=== PATIENT | female | born 1965 | race Caucasian/White ===

== ENCOUNTER 2016-12-02 19:53 | Emergency (ER) | payer BC, OTHER ==
[~2016-12-02] VITALS: Ht 167.6 cm; Wt 80.0 kg
[2016-12-02 19:56] VITALS: BP 152/75; PULSE 81; RESP 16; TEMP 98.4; O2SAT 99
[2016-12-02] MEDS ORDERED: traMADol HCL 50 MG TAB PO ONE (23:15)
--- NOTE | 2016-12-02 23:43 | PD ---
HPI Chief Complaint: Fall Time Seen by Provider: 23:01 Travel History International Travel<30 days: No Contact w/Intl Traveler<30days: No Traveled to known affect area: No History of Present Illness HPI 51-year-old female with history of diabetes here for evaluation of bilateral knee, bilateral hip, and lower back pain after a slip and fall that occurred at around 4:30 PM today. The patient reports that she was at an [employer] restaurant when she slipped and fell, landing onto her knees, causing her legs split apart. She has been able to ambulate since the fall, however has had persistent pain in her knees bilaterally, bilateral hips, and lower back. She denies head injury or LOC. She is not on any antiplatelets or anticoagulants. No paresthesias or motor deficits. Pain is moderate, constant, worse with movement and palpation. PFSH Past Medical History Cardiovascular Problems: Yes (HTN) Diabetes: Yes Patient Takes Glucophage: Yes (METFORMIN 12/02/16 0800) Diminished Hearing: No Hypertension: Yes Tetanus Vaccination: > 5 Years Influenza Vaccination: Yes ?: Not Tubal Ligation: Yes Social History Alcohol Use: Yes (RARE) Tobacco Use: No Substance Use: No Allergies-Medications (Allergen,Severity, Reaction): Coded Allergies: No Known Allergies (Unverified , 12/02/16) Reported Meds & Prescriptions Reported Meds & Active Scripts Active Tramadol (Tramadol HCl) 50 Mg Tab 50 Mg PO Q6H PRN Reported Invokana (Canagliflozin) 100 Mg Tab 100 Mg PO DAILY Take before 1st meal of day. Metformin (Metformin HCl) 500 Mg Tab 500 Mg PO BIDPC With meals Glipizide 10 Mg Tab 10 Mg PO BIDAC Take 30 minutes before a meal Review of Systems Except as stated in HPI: all other systems reviewed are Neg Physical Exam Narrative GENERAL: Well-developed, well-nourished, comfortable, no acute distress. SKIN: Warm and dry. Left anterior knee with small superficial abrasion. Right anterior/medial knee with area of ecchymosis and slight swelling. No other lacerations, abrasions, or ecchymosis. HEAD: Atraumatic. Normocephalic. EYES: Pupils equal and round. No scleral icterus. No injection or drainage. ENT: No nasal bleeding or discharge. Mucous membranes pink and moist. NECK: Trachea midline. No JVD. No midline cervix spine step-off or tenderness. CARDIOVASCULAR: Regular rate and rhythm. Distal pulses brisk and equal bilaterally. RESPIRATORY: No accessory muscle use. Clear to auscultation. Breath sounds equal bilaterally. GASTROINTESTINAL: Abdomen soft, non-tender, nondistended. MUSCULOSKELETAL: Skin exam as above. Right medial/anterior knee with slight ecchymosis and swelling. Normal range of motion in bilateral hips and knees. Mild right SI joint tenderness. No midline vertebral step-off or tenderness. The rest of her joints and extremities are without deformity, without tenderness , with normal range of motion. NEUROLOGICAL: Awake and alert. No obvious cranial nerve deficits. Motor grossly within normal limits. Normal speech. PSYCHIATRIC: Appropriate mood and affect; insight and judgment normal. Data Data Last Documented VS Vital Signs Date Time Temp Pulse Resp B/P Pulse Ox O2 Delivery O2 Flow Rate FiO2 12/02/16 19:56 98.4 81 16 152/75 99 Room Air Orders Pelvis, Ap Only (Routine) (12/02/16 ) Spine, Lumbar Comp W/Obliq (12/02/16 ) Knee, Complete (4vws) (12/02/16 ) Knee, Complete (4vws) (12/02/16 ) Tramadol (Ultram) (12/02/16 23:15) MDM Medical Decision Making Medical Screen Exam Complete: Yes Emergency Medical Condition: Yes Differential Diagnosis Knee contusion versus fracture, hip contusion versus strain versus fracture, low back contusion versus fracture Narrative Course Vital signs reviewed. Left knee x-ray: Negative exam. Right knee x-ray: Negative exam. Pelvis x-ray: No evidence of acute fracture. Lumbar spine x-ray: No evidence of acute fracture. The patient was made aware of all findings. She is resting comfortably. She is able to ambulate. She is stable for discharge home with outpatient follow- up with a primary care physician when she returns to [place] next week. She was informed on when to return to the emergency department. She verbalizes understanding and agreement with plan. Diagnosis Primary Impression: Fall Qualified Code: W19.XXXA - Fall, initial encounter Additional Impression: Multiple contusions Referrals: Primary Care Physician 3 days Additional Instructions: Follow-up with your primary care physician when you return home. Return to the emergency room for worsening symptoms or any other concerns. Scripts Tramadol 50 Mg Tab50 Mg PO Q6H PRN (PAIN) #15 TAB Ref 0 Prov:Lawrence Perez MD 12/03/16 Disposition: 01 DISCHARGE HOME Condition: Stable Lawrence Perez MD Dec 02, 2016 23:42
[2016-12-02] MEDS ORDERED: GLIP10TA6 PO (23:49)
[2016-12-02] MEDS ORDERED: METF500T PO (23:49)
[2016-12-02] MEDS ORDERED: CANA100T PO (23:49)
--- NOTE | 2016-12-02 23:58 | RADRPT ---
EXAM DATE/TIME: 12/02/2016 23:29 [facility] COMPARISON: No previous studies available for comparison. INDICATIONS : Trauma to pelvis post fall today MEDICAL HISTORY : None. SURGICAL HISTORY : None. ENCOUNTER: Initial ACUITY: 1 day PAIN SCORE: 4/10 LOCATION: Bilateral Pelvis and hips FINDINGS: A single frontal view of the pelvis demonstrates no evidence of fracture. The bony pelvic ring is in tact. Bony mineralization is normal. The soft tissues are intact. CONCLUSION: 1. There is no evidence of acute fracture. Zach Win MD on December 02, 2016 at 23:57 Board Certified Radiologist. This report was verified electronically.
--- NOTE | 2016-12-02 23:58 | RADRPT ---
EXAM DATE/TIME: 12/02/2016 23:30 [facility] COMPARISON: No previous studies available for comparison. INDICATIONS : Right knee pain after fall down stairs today MEDICAL HISTORY : None. SURGICAL HISTORY : None. ENCOUNTER: Initial ACUITY: 1 day PAIN SCORE: 5/10 LOCATION: Right anterior knee FINDINGS: Four view examination of the right knee demonstrates no evidence of fracture or dislocation. Bony mi neralization is normal. The articular surfaces are intact. The suprapatellar soft tissues have a no rmal configuration. CONCLUSION: 1. Negative examination of the knee. Zach Win MD on December 02, 2016 at 23:57 Board Certified Radiologist. This report was verified electronically.
--- NOTE | 2016-12-02 23:59 | RADRPT ---
EXAM DATE/TIME: 12/02/2016 23:33 [facility] COMPARISON: No previous studies available for comparison. INDICATIONS : Lower back pain post fall down stairs today MEDICAL HISTORY : None. SURGICAL HISTORY : None. ENCOUNTER: Initial ACUITY: 1 day PAIN SCORE: 5/10 LOCATION: Lumbar spine FINDINGS: There are five non-rib bearing vertebral bodies. The vertebral bodies are in normal alignment withou t evidence of subluxation or scoliosis. There is minimal multilevel marginal osteophyte formation Th e disc spaces are maintained. The posterior elements are intact without evidence of spondylolysis. The pedicles are intact. Bony mineralization is normal. No fracture is identified. CONCLUSION: 1. There is no evidence of acute fracture. Zach Win MD on December 02, 2016 at 23:57 Board Certified Radiologist. This report was verified electronically.
--- NOTE | 2016-12-03 00:02 | RADRPT ---
EXAM DATE/TIME: 12/02/2016 23:32 [facility] COMPARISON: No previous studies available for comparison. INDICATIONS : Left knee pain after fall down stairs today MEDICAL HISTORY : None. SURGICAL HISTORY : None. ENCOUNTER: Initial ACUITY: 1 day PAIN SCORE: 5/10 LOCATION: Left anterior knee FINDINGS: Four view examination of the left knee demonstrates no evidence of fracture or dislocation. Bony min eralization is normal. The articular surfaces are intact. The suprapatellar soft tissues have a nor mal configuration. CONCLUSION: 1. Negative examination of the knee. Zach Win MD on December 03, 2016 at 0:00 Board Certified Radiologist. This report was verified electronically.
[2016-12-03] MEDS ORDERED: TRAM50TA PO (00:13)
== END 2016-12-03 01:19 | disposition home or self-care (01) ==
LOC: NEPB 19:53
DX: S80.212A Abrasion, left knee, initial encounter (principal); T14.8 Other injury of unspecified body region; E11.9 Type 2 diabetes mellitus without complications; I10 Essential (primary) hypertension; W01.0XXA Fall on same level from slipping, tripping and stumbling without subsequent striking against object, initial encounter; Z79.4 Long term (current) use of insulin; Y92.511 Restaurant or cafe as the place of occurrence of the external cause
CPT/HCPCS: 72110; 72170; 73564; 99284